=== PATIENT | male | born 1980 | race Caucasian/White ===

== ENCOUNTER 2019-08-04 15:15 | Emergency (ER) | payer OTHER ==
[~2019-08-04] VITALS: Ht 177.8 cm; Wt 75.3 kg
--- NOTE | 2019-08-04 15:30 | NUR ---
patient came in to the er c/o dizziness and near syncope while sitting in front of his computer this morning. On room air, breathing evenly and unlabored. conencted to the monitor and pulse ox. kept comfortable, will continue to monitor accordingly.
--- NOTE | 2019-08-04 16:34 | NUR ---
urine collected and sent to lab
--- NOTE | 2019-08-04 16:35 | NUR ---
PAGED [facility].
[2019-08-04 16:46] LABS: BASOPHILS % (AUTO) 0.6 % (0.0-2.0); EOSINOPHILS % (AUTO) 1.2 % (0.0-6.0); HEMATOCRIT 43 % (39-51); HEMOGLOBIN 14.7 g/dL (13.5-17.5); LYMPHOCYTES # (AUTO) 1.7 /CMM (0.8-4.8); LYMPHOCYTES % (AUTO) 23.1 % (20.0-44.0); MEAN CORPUSCULAR HGB CONC 34 g/dl (31.0-36.0); MEAN CORPUSCULAR VOLUME 96 fL (80-96); MONOCYTES # (AUTO) 0.6 /CMM (0.1-1.30); MONOCYTES % (AUTO) 7.8 % (2.0-12.0); NEUTROPHILS # (AUTO) 5.1 /CMM (1.8-8.9); NEUTROPHILS % (AUTO) 67.3 % (43.0-81.0); PLATELET COUNT (AUTO) 233 /CMM (150-450); RED BLOOD CELL COUNT(AUTO) 4.54 MIL/uL (4.5-6.0); WHITE BLOOD COUNT (AUTO) 7.6 K/uL (4.3-11.0)
--- NOTE | 2019-08-04 16:50 | NUR ---
wheeled patient to ct
[2019-08-04 16:54] LABS: CARBON DIOXIDE 28 mmol/L (21-32); CHLORIDE 105 mmol/L (98-107); GLUCOSE 84 mg/dL (74-106); POTASSIUM 3.8 mmol/L (3.5-5.1); SODIUM SERUM 142 mmol/L (136-145); UREA NITROGEN, BLOOD 12 mg/dL (7-18)
--- NOTE | 2019-08-04 17:00 | NUR ---
patient came back from ct
[2019-08-04 17:05] LABS: ALCOHOL, BLOOD < 3 mg/dL (0-0)
--- NOTE | 2019-08-04 17:57 | NUR ---
CALLED DR. GU TO ADVISE THAT PT IS GOING AMA.
[2019-08-04 18:11] VITALS: BP 145/81
--- NOTE | 2019-08-04 18:11 | NUR ---
Patient does not wish to proceed with medical care recommended by Dr. Topete. Patient given information related to possible complications, up to and including , which could occur as a result of leaving the hospital at this time. Patient verbalizes understanding of risks involved due to leaving against medical advice. Patient has signed AMA form.
== END 2019-08-04 18:11 | disposition home or self-care (01) ==
LOC: ER 15:15
DX: R42 Dizziness and giddiness (principal); R55 Syncope and collapse; Z98.890 Other specified postprocedural states; Z60.2 Problems related to living alone
CPT/HCPCS: 36415; 70450-TC; 71045-TC; 80048-TC; 80305; 83735-TC; 84484-TC; 85025-TC; G0480

== ENCOUNTER 2021-05-03 13:49 | Emergency (ER) | payer OTHER ==
[~2021-05-03] VITALS: Ht 177.8 cm; Wt 72.6 kg
--- NOTE | 2021-05-03 14:03 | NUR ---
PT STATES THAT AT 1130 HE STARTED FEELING DIZZY WITH PALPITATIONS, DENIES PAIN. EKG BEING DONE AT THIS TIME
[2021-05-03] MEDS ORDERED: DILTIAZEM HCL 50 MG IV ONE (14:17)
[2021-05-03] MEDS ORDERED: IV NS 0.9% 1,000 ML BAG IV ONE (14:30)
[2021-05-03] MEDS ORDERED: DILTIAZEM HCL 25 MG IV IV ONE (14:30)
[2021-05-03] MEDS ORDERED: DILTIAZEM HCL 50 MG IV IV ONE (14:30)
--- NOTE | 2021-05-03 14:34 | NUR ---
1 DOSE OF CARDIZEM GIVEN PER MD ORDERS. IV BOLUS INFUSING. PT STATES HE FEELS BETTER ALREADY. HEART RATE 122 AT THIS TIME. WILL CONTINUE TO MONITOR.
[2021-05-03 14:35] LABS: BASOPHILS # (AUTO) 0.1 K/uL (0.0-0.2); BASOPHILS % (AUTO) 0.5 % (0.0-2.0); EOSINOPHILS % (AUTO) 0.9 % (0.0-6.0); HEMATOCRIT 44 % (39-51); HEMOGLOBIN 14.8 g/dL (13.5-17.5); LYMPHOCYTES # (AUTO) 2.5 K/uL (0.8-4.8); LYMPHOCYTES % (AUTO) 23.7 % (20.0-44.0); MEAN CORPUSCULAR HGB CONC 34 g/dl (31.0-36.0); MEAN CORPUSCULAR VOLUME 95 fL (80-96); MONOCYTES # (AUTO) 0.6 K/uL (0.1-1.30); MONOCYTES % (AUTO) 6.1 % (2.0-12.0); NEUTROPHILS # (AUTO) 7.3 K/uL (1.8-8.9); NEUTROPHILS % (AUTO) 68.8 % (43.0-81.0); PLATELET COUNT (AUTO) 235 K/uL (150-450); WHITE BLOOD COUNT (AUTO) 10.6 K/uL (4.3-11.0)
[2021-05-03] MEDS ORDERED: AZEL137S7 (14:37)
[2021-05-03 14:54] LABS: CALCIUM, SERUM 9.4 mg/dL (8.5-10.1); CARBON DIOXIDE 25 mmol/L (21-32); CHLORIDE 105 mmol/L (98-107); CREATININE 0.9 mg/dL (0.6-1.3); GLUCOSE 134 mg/dL (74-106); SODIUM SERUM 139 mmol/L (136-145); UREA NITROGEN, BLOOD 12 mg/dL (7-18)
--- NOTE | 2021-05-03 15:19 | NUR ---
URINE SAMPLE SENT TO LAB
[2021-05-03] MEDS ORDERED: IV NS 0.9% 1,000 ML IV PRN (15:30)
[2021-05-03] MEDS ORDERED: MAGNESIUM HYDROXIDE 30 ML UDC PO PRN (15:30)
[2021-05-03] MEDS ORDERED: ACETAMINOPHEN 325 MG TABLET PO PRN (15:30)
[2021-05-03] MEDS ORDERED: DILTIAZEM HCL IV 125 MG in IV NS 0.9% 100 ML IV PRN (15:30)
[2021-05-03] MEDS ORDERED: ONDANSETRON HCL/PF 4 MG/2 ML VIAL IVP PRN (15:30)
[2021-05-03] MEDS ORDERED: DILTIAZEM HCL IV 125 MG in IV D5W 100 ML IV ONE (15:30)
[2021-05-03] MEDS ORDERED: MAG HYDROX/AL HYDROX/SIMETH 30 ML UDC PO PRN (15:30)
--- NOTE | 2021-05-03 15:45 | NUR ---
PT CONVERTED TO SINUS RHYTHM AT 1525 PRIOR TO STARTING CARDIZEM GTT. CARDIZEM GTT NOT STARTED PER MD ORDERS. EKG ORDERED. PT DENIES ANY PAIN OR PALPITATIONS AT THIS TIME. WILL CONTINUE TO MONITOR
[2021-05-03] MEDS ORDERED: METO25TA6 PO (16:12)
--- NOTE | 2021-05-03 16:30 | NUR ---
Patient discharged to home in stable condition. Written and verbal after care instructions given. Prescription sent to pharmacy by MD. Patient verbalizes understanding of instruction. IV removed. Catheter intact and site benign. Pressure and 4x4 applied to site. No bleeding noted.
[2021-05-03 16:36] VITALS: BP 102/50
[2021-05-03] MEDS ORDERED: ENOXAPARIN SODIUM 80 MG/0.8 ML DISP.SYRIN SQ SCH (21:00)
== END 2021-05-03 16:38 | disposition home or self-care (01) ==
LOC: ER 13:56
DX: I48.20 Chronic atrial fibrillation, unspecified (principal); I45.2 Bifascicular block; Z79.52 Long term (current) use of systemic steroids; Z60.2 Problems related to living alone
CPT/HCPCS: 36415; 71045; 80048; 80307; 80320; 84484; 85025; 93005 ×3; 96361; 96374; 99285; J3490 ×2; J7060; G0480

== ENCOUNTER 2021-09-12 13:20 | Emergency (ER) | payer OTHER ==
[~2021-09-12] VITALS: Ht 177.8 cm; Wt 77.1 kg
[~2021-09-12 13:20] MED LIST: AZEL137S7; METO25TA6 PO
--- NOTE | 2021-09-12 13:23 | NUR ---
BIBS C/O NEAR SYNCOPAL EPISODES 2 DAY AGO AND AT 1130 TODAY, PT STATED HE FEEL SOB PRIOR TO HIS NEAR SYNCOPAL EPISODES. ATTCHED TO MONITOR. VITALS ARE WITHIN NORMAL LIMITS. NO RESPIRATORY DISTRESS NOTED, ON ROOM AIR. AWAITING MD ADAN.
--- NOTE | 2021-09-12 13:40 | NUR ---
IV ESTABLIHSED L AC 20G. LABS DRAWN AND COLLECTED AT BEDSIDE.
[2021-09-12 13:47] LABS: BASOPHILS % (AUTO) 0.5 % (0.0-2.0); EOSINOPHILS % (AUTO) 0.5 % (0.0-6.0); HEMATOCRIT 44 % (39-51); HEMOGLOBIN 14.9 g/dL (13.5-17.5); LYMPHOCYTES # (AUTO) 1.7 K/uL (0.8-4.8); LYMPHOCYTES % (AUTO) 20.1 % (20.0-44.0); MEAN CORPUSCULAR HGB CONC 34 g/dl (31.0-36.0); MEAN CORPUSCULAR VOLUME 93 fL (80-96); MONOCYTES # (AUTO) 0.5 K/uL (0.1-1.30); MONOCYTES % (AUTO) 6.4 % (2.0-12.0); NEUTROPHILS # (AUTO) 6.2 K/uL (1.8-8.9); NEUTROPHILS % (AUTO) 72.5 % (43.0-81.0); PLATELET COUNT (AUTO) 224 K/uL (150-450); WHITE BLOOD COUNT (AUTO) 8.6 K/uL (4.3-11.0)
--- NOTE | 2021-09-12 13:58 | NUR ---
PATIENT TAKEN TO CT [facility]IA [facility]
--- NOTE | 2021-09-12 14:06 | NUR ---
PATIENT RETURNED FROM CT [facility]IA [facility]
[2021-09-12 14:11] LABS: CALCIUM, SERUM 8.9 mg/dL (8.5-10.1); CARBON DIOXIDE 29 mmol/L (21-32); CHLORIDE 104 mmol/L (98-107); CREATININE 0.9 mg/dL (0.6-1.3); GLUCOSE 103 mg/dL (74-106); POTASSIUM 3.6 mmol/L (3.5-5.1); SODIUM SERUM 139 mmol/L (136-145); UREA NITROGEN, BLOOD 13 mg/dL (7-18)
--- NOTE | 2021-09-12 15:16 | NUR ---
IV removed. Catheter intact and site benign. Pressure and 4x4 applied to site. No bleeding noted.Patient discharged to home in stable condition. Written and verbal after care instructions given. Patient verbalizes understanding of instruction.
[2021-09-12 15:18] VITALS: BP 128/88
== END 2021-09-12 15:18 | disposition home or self-care (01) ==
LOC: ER 13:25
DX: R00.2 Palpitations (principal); I48.91 Unspecified atrial fibrillation; Z60.2 Problems related to living alone; Z79.899 Other long term (current) drug therapy
CPT/HCPCS: 36415; 70450-TC; 71045-TC; 80048-TC; 84484-TC; 85025-TC